=== PATIENT | male | born 1960 | race Caucasian/White ===

== ENCOUNTER 2017-01-03 13:59 | Observation (INO) | payer BC ==
--- NOTE | 2017-01-03 14:08 | CPEKG ---
Heart Rate: 75 RR Interval: 800 P-R Interval: 164 QRSD Interval: 98 QT Interval: 384 QTC Interval: 429 P [place]: 54 QRS [place]: 51 T Wave [place]: 55 EKG Severity - NORMAL ECG - EKG Impression: SINUS RHYTHM Electronically Signed By: Jurgen Mccain 03-Jan-2017 15:23:36
[2017-01-03 14:18] LABS: % IMMATURE GRANULYOCYTES 0.2 % (0.0-1.1); ABSOLUTE IMMATURE GRANULOCYTES 0.01 10^3/uL (0.00-0.10); ADD DIFF? NO; ADD MORPH? NO; ADD SCAN? NO; ATYPICAL LYMPHOCYTE FLAG 0 (0-99); FRAGMENT RBC FLAG 0 (0-99); HEMOGLOBIN 15.6 g/dL (13.7-17.5); LEFT SHIFT FLG 0 (0-99); LIPEMIA HEMOLYSIS FLAG 90 (0-99); MEAN CELL HEMOGLOBIN 32.4 pg (27.9-34.1); MEAN CELL HEMOGLOBIN CONCENTR. 35.5 g/dL (32.4-36.7); MEAN CELL VOLUME 91.3 fL (81.5-99.8); MEAN PLATELET VOLUME 10.7 fL (8.7-11.7); PLATELET CLUMPS FLAG 0 (0-99); PLATELET COUNT 219 10^3/uL (150-400); RED BLOOD CELL COUNT 4.82 10^6/uL (4.40-6.38); RED CELL DISTRIBUTION WIDTH 11.9 % (11.5-15.2)
--- NOTE | 2017-01-03 14:22 | EDPHY ---
H & P Stated Complaint: @ ~1330 felt funny - confused, dizzy, foggy Source: Patient Exam Limitations: No limitations - Personal History Current Tetanus Diphtheria and Acellular Pertussis (TDAP): Yes - Medical/Surgical History Hx Asthma: No Hx Chronic Respiratory Disease: No Hx Diabetes: No Hx Cardiac Disease: Yes Hx Renal Disease: No Hx Cirrhosis: No Hx Alcoholism: No Hx HIV/AIDS: No Hx Splenectomy or Spleen Trauma: No Other PMH: back surg, high cholesterol - Family History Significant Family History: No pertinent family hx - Social History Smoking Status: Never smoked Alcohol Use: Occasionally Drug Use: None <Cristiane Ulola - Last Filed: 01/03/17 15:28> <Jurgen Mccain - Last Filed: 01/03/17 16:30> Time Seen by Provider: 01/03/17 14:03 HPI/ROS: 56-year-old male presents complaining of "Feeling weird, foggy", he also states that while walking around his desk he felt unsteady as if he was leaning to 1 direction without trying to. No slurred speech however he does feel he has difficulty finding certain words. No weakness in his arms or legs, no complaint of numbness in face arms or legs. (Cristiane Ulloa) - Physical Exam Exam: 56-year-old male alert and oriented in mild distress secondary to confusion, nontoxic appearance, afebrile HEENT atraumatic normocephalic, extraocular muscles intact, anicteric Oropharynx negative for erythema negative exudate, tolerating her own secretions Neck supple no meningismus Lungs clear to auscultation bilaterally Heart regular rate and rhythm without murmur rub or gallop Abdomen nondistended normoactive bowel sounds soft nontender Back no CVA tenderness, no step-offs, no spinal tenderness Extremities no cyanosis clubbing or edema Neuro alert and oriented, cranial nerves intact, speech coherent/intact, short- term memory intact,no focal deficits [id number] normal, some difficulty with rapid alternating movement negative pronator drift (Cristiane Ulloa) Constitutional: Initial Vital Signs Temperature (C) 36.6 C 01/03/17 14:04 Heart Rate 67 01/03/17 14:04 Respiratory Rate 18 01/03/17 14:04 Blood Pressure 160/100 H 01/03/17 14:04 O2 Sat (%) 95 01/03/17 14:04 O2 Delivery Mode Room Air Allergies/Adverse Reactions: No Known Allergies Allergy (Unverified 01/03/17 16:22) Home Medications: Medication Instructions Recorded Sertraline HCl 04/20/16 Zocor 04/20/16 Medical Decision Making <Cristiane Ulloa - Last Filed: 01/03/17 15:28> Consult/Admit Bed Type: [place] [address] <Jurgen Mccain - Last Filed: 01/03/17 16:30> - Diagnostics EKG Interpretation: 12-lead EKG interpreted by me; official reading is in trace master. My interpretation is sinus rhythm, normal intervals. (Jurgen Mccain) Imaging Results: Imaging Impressions Head CT 01/03/17 14:23 Impression: Head CT within normal limits. Results called to Dr. Ulloa at 2:48 am. General information for patients regarding this examination can be found at [email or web address]. If you have questions or comments about this report, please contact me at [phone] (hospital) or [phone] (cell). Head CTA 01/03/17 14:59 Impression: Minimal calcified plaque right carotid bulb. Otherwise, normal CT angiogram of the neck. Normal CT angiogram of the [place], as detailed above. Note: All calculations were performed using NASCET criteria. Findings discussed with Jurgen Mccain M.D. At 16:12 hour, 01/03/2017. Neck CTA 01/03/17 14:59 Impression: Minimal calcified plaque right carotid bulb. Otherwise, normal CT angiogram of the neck. Normal CT angiogram of the [place], as detailed above. Note: All calculations were performed using NASCET criteria. Findings discussed with Jurgen Mccain M.D. At 16:12 hour, 01/03/2017. ED Course/Re-evaluation: patient seen and evaluation begun for confusion and unsteady gait. That began at 1:30 p.m. while at work. Differential diagnosis considered acute CVA, cerebellar bleed, vertigo, hypertensive urgency, electrolyte imbalance, dehydration, toxic ingestion labs CBC within normal limits Sed rate, D-dimer, PT PTT all within normal limits CMP within normal limits CT brain negative impression rule out CVA the plan Care turned over to Dr Mccain at 1500 . (Cristiane Ulloa) Other Provider: Care of the patient is assumed from Dr. Ulloa at 1450, with CT head pending and disposition to be determined. At this time noncontrast head CT reported by Dr. Mane is normal. I examined the patient personally at this time. He is here with a employee who has known him for 3 years, says his speech is still not normal. Patient states he started getting symptomatic at 1:30 p.m. today. He noticed difficulty saying words even though he could think of the correct ones. His co-worker who is here with him says he was on his way home but he was having difficulty walking and felt off balance and so presents to the emergency department. He says he still has a little bit of hesitancy with speech currently although he says he is getting better. 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 Discussed with Joseph 1502; patient made stroke alert by myself at this time. Seen via telemedicine by Dr. Linton from [facility] at 1516, recommends no Activase, admit for stroke workup. CT angiography ordered, admit for stroke evaluation to hospitalist service at [facility]. Reason for transfer for inpatient hospital bed not available here discussed with patient and consented. Requires ALS for cardiac monitoring. Dr. Ruiz from Neurology will consult, discussed via phone. 1600: Patient's symptoms completely resolved. On examination is speech does appear normal to me now. He feels like he is back to normal. 1615: Some carotid plaque but no critical stenosis per Dr. Mondragon on angiography. (Jurgen Mccain) - Data Points Laboratory Results: Laboratory Results 01/03/17 14:05 01/03/17 14:05 01/03/17 01/03/17 01/03/17 14:09 14:05 14:05 WBC RBC Hgb POC Hgb 16.0 gm/dL gm/dL (13.7-17.5) Hct 43.7 % % (40.0-51.0) POC Hct 47 % % (40-51) MCV MCH MCHC RDW Plt Count MPV Neut % (Auto) Lymph % (Auto) Polk % (Auto) Eos % (Auto) Baso % (Auto) Nucleat RBC Rel Count Absolute Neuts (auto) Absolute Lymphs (auto) Absolute Monos (auto) Absolute Eos (auto) Absolute Basos (auto) Absolute Nucleated RBC Immature Gran % Immature Gran # ESR 6 MM/HR MM/HR (0-20) PT INR APTT D-Dimer < 0.27 ug/mLFEU ug/mLFEU (0.00-0.50) POC Sodium 141 mEq/L mEq/L (134-144) Sodium POC Potassium 4.0 mEq/L mEq/L (3.3-5.0) Potassium POC Chloride 102 mEq/L mEq/L (97-110) Chloride Carbon Dioxide Anion Gap POC BUN 11 mg/dL mg/dL (7-23) BUN Creatinine POC Creatinine 1.0 mg/dL mg/dL (0.7-1.3) Estimated GFR Glucose POC Glucose 90 mg/dL mg/dL (70-100) Calcium Total Bilirubin AST ALT Alkaline Phosphatase Total Protein Albumin 01/03/17 01/03/17 01/03/17 14:05 14:05 14:05 WBC 6.33 10^3/uL 10^3/uL (3.80-9.50) RBC 4.82 10^6/uL 10^6/uL (4.40-6.38) Hgb 15.6 g/dL g/dL (13.7-17.5) POC Hgb Hct 44.0 % % (40.0-51.0) POC Hct MCV 91.3 fL fL (81.5-99.8) MCH 32.4 pg pg (27.9-34.1) MCHC 35.5 g/dL g/dL (32.4-36.7) RDW 11.9 % % (11.5-15.2) Plt Count 219 10^3/uL 10^3/uL (150-400) MPV 10.7 fL fL (8.7-11.7) Neut % (Auto) 55.8 % % (39.3-74.2) Lymph % (Auto) 32.2 % % (15.0-45.0) Polk % (Auto) 7.7 % % (4.5-13.0) Eos % (Auto) 3.0 % % (0.6-7.6) Baso % (Auto) 1.1 % % (0.3-1.7) Nucleat RBC Rel Count 0.0 % % (0.0-0.2) Absolute Neuts (auto) 3.53 10^3/uL 10^3/uL (1.70-6.50) Absolute Lymphs (auto) 2.04 10^3/uL 10^3/uL (1.00-3.00) Absolute Monos (auto) 0.49 10^3/uL 10^3/uL (0.30-0.80) Absolute Eos (auto) 0.19 10^3/uL 10^3/uL (0.03-0.40) Absolute Basos (auto) 0.07 10^3/uL 10^3/uL (0.02-0.10) Absolute Nucleated RBC 0.00 10^3/uL 10^3/uL (0-0.01) Immature Gran % 0.2 % % (0.0-1.1) Immature Gran # 0.01 10^3/uL 10^3/uL (0.00-0.10) ESR PT 13.6 SEC SEC (12.0-15.0) INR 1.07 (0.83-1.16) APTT 26.5 SEC SEC (23.0-38.0) D-Dimer POC Sodium Sodium 142 mEq/L mEq/L (134-144) POC Potassium Potassium 4.1 mEq/L mEq/L (3.5-5.2) POC Chloride Chloride 102 mEq/L mEq/L (97-110) Carbon Dioxide 26 mEq/l mEq/l (22-31) Anion Gap 14 mEq/L mEq/L (8-16) POC BUN BUN 11 mg/dL mg/dL (7-23) Creatinine 0.9 mg/dL mg/dL (0.7-1.3) POC Creatinine Estimated GFR > 60 Glucose 82 mg/dL mg/dL (70-100) POC Glucose Calcium 9.6 mg/dL mg/dL (8.5-10.4) Total Bilirubin 0.5 mg/dL mg/dL (0.1-1.4) AST 33 IU/L IU/L (17-59) ALT 50 IU/L IU/L (21-72) Alkaline Phosphatase 54 IU/L IU/L (38-126) Total Protein 6.9 g/dL g/dL (6.3-8.2) Albumin 4.4 g/dL g/dL (3.5-5.0) Medications Given: Discontinued Medications Sodium Chloride (Ns) 1,000 mls @ 0 mls/hr IV ONCE ONE PRN Reason: Wide Open Stop: 01/03/17 14:31 Last Admin: 01/03/17 14:38 Dose: 1,000 mls Ondansetron HCl (Zofran) 4 mg IVP EDNOW ONE Stop: 01/03/17 14:31 Last Admin: 01/03/17 14:39 Dose: 4 mg Point of Care Test Results: 01/03/17 14:09 POC Sodium 141 POC Potassium 4.0 POC Chloride 102 POC BUN 11 POC Creatinine 1.0 POC Glucose 90 Departure <Cristiane Ulloa B - Last Filed: 01/03/17 15:28> <Jurgen Mccain - Last Filed: 01/03/17 16:30> - Departure Disposition: [facility] Inpatient Acute Clinical Impression: Expressive aphasia Transient cerebral ischemia Qualifiers: Transient cerebral ischemia type: unspecified Qualified Code(s): G45.9 - Transient cerebral ischemic attack, unspecified Condition: Good
[2017-01-03] MEDS ORDERED: NS 1,000 ML IV ONE (14:30)
[2017-01-03] MEDS ORDERED: ONDANSETRON 4 MG/2 ML VIAL IVP ONE (14:30)
[2017-01-03 14:35] LABS: APTT 26.5 SEC (23.0-38.0); INR 1.07 (0.83-1.16); PROTIME(PATIENT) 13.6 SEC (12.0-15.0)
[2017-01-03 14:39] LABS: ALANINE AMINOTRANSFERASE 50 IU/L (21-72); ALBUMIN 4.4 g/dL (3.5-5.0); ALKALINE PHOSPHATASE 54 IU/L (38-126); ANION GAP 14 mEq/L (8-16); ASPARTATE AMINOTRANSFERASE 33 IU/L (17-59); BILIRUBIN,TOTAL 0.5 mg/dL (0.1-1.4); CALCIUM 9.6 mg/dL (8.5-10.4); CARBON DIOXIDE 26 mEq/l (22-31); CHLORIDE 102 mEq/L (97-110); CREATININE 0.9 mg/dL (0.7-1.3); GLOMERULAR FILTRATION RATE > 60; GLUCOSE 82 mg/dL (70-100); POTASSIUM 4.1 mEq/L (3.5-5.2); SODIUM 142 mEq/L (134-144); TOTAL PROTEIN 6.9 g/dL (6.3-8.2)
[2017-01-03 14:53] LABS: HEMATOCRIT 43.7 % (40.0-51.0)
[2017-01-03] MEDS ORDERED: IOPAMIDOL (ISOVUE 370) 100 ML BTL IV ONE (15:01)
[2017-01-03] MEDS ORDERED: PROMETHAZINE HCL 25 MG/ML INJ IVP PRN (17:40)
[2017-01-03] MEDS ORDERED: ONDANSETRON DISINTEGRATING 4 MG TAB PO PRN (17:40)
[2017-01-03] MEDS ORDERED: oxyCODONE IR 5 MG TAB PO PRN (17:40)
[2017-01-03] MEDS ORDERED: ONDANSETRON 4 MG/2 ML VIAL IVP PRN (17:40)
[2017-01-03] MEDS ORDERED: ACETAMINOPHEN 325 MG TAB PO PRN (17:40)
[2017-01-03] MEDS ORDERED: ZOLPIDEM TARTRATE 5 MG TAB PO PRN (17:40)
[2017-01-03] MEDS ORDERED: LORazepam 0.5 MG TAB PO PRN (17:40)
[2017-01-03 19:53] LABS: COLOR PALE YELLOW; LEUKOCYTE ESTERASE,URINE NEGATIVE (NEGATIVE); NITRITE,URINE NEGATIVE (NEGATIVE)
[2017-01-03] MEDS ORDERED: ATORVASTATIN CALCIUM 20 MG TAB PO SCH (21:00)
[2017-01-03] MEDS ORDERED: SERTRALINE HCL 100 MG TAB PO SCH (21:00)
[2017-01-04 04:51] LABS: % IMMATURE GRANULYOCYTES 0.1 % (0.0-1.1); ABSOLUTE IMMATURE GRANULOCYTES 0.01 10^3/uL (0.00-0.10); ADD DIFF? NO; ADD MORPH? NO; ADD SCAN? NO; ATYPICAL LYMPHOCYTE FLAG 0 (0-99); FRAGMENT RBC FLAG 0 (0-99); HEMATOCRIT 41.9 % (40.0-51.0); HEMOGLOBIN 14.5 g/dL (13.7-17.5); LEFT SHIFT FLG 0 (0-99); LIPEMIA HEMOLYSIS FLAG 90 (0-99); MEAN CELL HEMOGLOBIN 32.6 pg (27.9-34.1); MEAN CELL HEMOGLOBIN CONCENTR. 34.6 g/dL (32.4-36.7); MEAN CELL VOLUME 94.2 fL (81.5-99.8); PLATELET CLUMPS FLAG 0 (0-99); PLATELET COUNT 179 10^3/uL (150-400); RED BLOOD CELL COUNT 4.45 10^6/uL (4.40-6.38); RED CELL DISTRIBUTION WIDTH 12.1 % (11.5-15.2)
[2017-01-04 05:07] LABS: ANION GAP 13 mEq/L (8-16); CALCIUM 9.3 mg/dL (8.5-10.4); CARBON DIOXIDE 21 mEq/l (22-31); CHLORIDE 110 mEq/L (97-110); CHOLESTEROL 177 mg/dL (140-220); CHOLESTEROL/HDL RATIO 3.61 RATIO (1.00-4.97); CREATININE 0.8 mg/dL (0.7-1.3); GLOMERULAR FILTRATION RATE > 60; GLUCOSE 83 mg/dL (70-100); HIGH DENSITY LIPOPROTEIN 49 mg/dL (40-65); LDL/HDL RATIO 1.98 RATIO (1.00-3.64); LOW DENSITY LIPOPROTEIN 97 mg/dL (80-100); NON-HIGH DENSITY LIPOPROTEIN 128 mg/dL (90-129); SODIUM 144 mEq/L (134-144); TRIGLYCERIDE 158 mg/dL (40-150); VERY LOW DENSITY LIPOPROTEINS 31 mg/dL (8-25)
--- NOTE | 2017-01-04 06:51 | GHP ---
[f rep st] HISTORY AND PHYSICAL DATE OF ADMISSION: 01/03/2017 CHIEF COMPLAINT: Word-finding difficulties. HISTORY: This is a 56-year-old man with past medical history of hyperlipidemia who presents with ap proximately 2 hours of word-finding difficulty associated with ataxia, nausea, and gait instability. Patient notes it began approximately 1:30 this afternoon while he was at work. He noted that he k new what he wanted to say but was having difficulty getting the words out. He also noted that when he was walking he felt unsteady and as if he were leaning to the side without intending to. He felt foggy and otherwise just not himself. He did have some associated nausea. The symptoms lasted abo ut 2 hours and then resolved completely. At the time my evaluation, patient feels completely within normal limits. His speech is normal. He notes his thought process is back to normal, as well. He has been up and walked to the bathroom without any difficulty. He has never had similar symptoms i n the past. Prior to onset of these symptoms today, he felt completely well. PAST MEDICAL HISTORY: Includes hyperlipidemia. PAST SURGICAL HISTORY: He has had a back surgery. FAMILY HISTORY: He denies any family history of stroke or heart disease. SOCIAL HISTORY: Patient is . 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 He is a never smoker. He drinks alc ohol about 2 beers several times per week. He denies illicit drugs. He denies significant stress i n his life. REVIEW OF SYSTEMS: 10-point review of systems obtained and negative except as per HPI. MEDICATIONS: Include: 1. Atorvastatin. 2. Sertraline. ALLERGIES: No known drug allergies. PHYSICAL EXAMINATION: VITAL SIGNS: BP 133/92, heart rate 66, respiratory rate 16, O2 sat 96% on ro om air, temperature is 36.9. GENERAL APPEARANCE: This is a well-developed/well-nourished man. He is awake and alert. He is in no acute distress. EYES: Anicteric. HENT: Oropharynx clear. CARDI OVASCULAR: Regular rate and rhythm. No murmurs, rubs, or gallops. PULMONARY: CTA bilaterally. N ormal work of breathing. ABDOMEN: Soft, nontender. Positive bowel sounds. EXTREMITIES: No clubb ing, cyanosis, or edema. SKIN: Warm, dry, well perfused. NEURO/PSYCH: Patient is oriented and appropriate. His gait is normal. Strength and sensation are intact. CLINICAL DATA: Labs reviewed. CBC is completely within normal limits. Coags are completely within normal limits. D-dimer is negative. Chemistry is completely unremarkable including liver function testing. EKG personally reviewed and interpreted shows sinus rhythm, rate of 75, no ischemic changes. Head CT personally reviewed and interpreted as within normal limits. Head and neck CT angiogram katina ws minimally calcified right carotid bulb, otherwise normal CTA of the neck and of the [place] of [place]. ASSESSMENT/PLAN: This is a 56-year-old man with past medical history of hyperlipidemia presenting w ith word-finding difficulty and ataxia consistent with transient ischemic attack. 1. Transient ischemic attack seems to be most likely underlying diagnosis. His initial workup is c ompletely negative. Will check a lipid panel and hemoglobin A1c. Will obtain an echocardiogram wit h bubble. Will consult Neurology. Will defer whether or not to get a followup MRI to Neurology. A t this time, symptoms are completely resolved. 2. Nausea. This too has resolved. Was associated with above. Some of what he describes sounds a bit consistent with vertigo, but again symptoms resolved completely. I suppose BPPV could be in the differential, as well, given that he described a positional component to the vertigo-like symptoms with associated nausea. Word-finding difficulties would be a little bit unusual for BPPV, however. 3. Hyperlipidemia. Will continue his statin and check a lipid panel. 4. Disposition. Observation status. Suspect he will need less than 48 hours stay for evaluation a nd management of above. 5. Patient is new to my care. Old records reviewed and summarized as per HPI and past medical hist ory. Care plan reviewed with ER physician, including plans for overnight observation. /[id number]/MODL
--- NOTE | 2017-01-04 06:56 | GCON ---
[f rep st] CONSULTATION CHIEF COMPLAINT: Expressive aphasia symptoms. HISTORY OF PRESENT ILLNESS: Mr. 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 His only previous medical history is dyslipidemia and depression. He is on atorvastatin and Zoloft for many years for this. He has had no previous neurologic history. No family history of neurologic problems including stroke. He was at work today at 1:30 p.m. when suddenly he felt he could not speak the words he was thinking in his mind. There was no discoordination in his actual motor or speech to suggest dysarthria. He describes more of a purely expressive aphasia in terms of being unable to get the words he was thinking out. He had no receptive language problems. He was able to clearly understand everyone around him at that time. There were no focal, motor, sensory changes. No vision changes. No other bulbar symptoms. No facial droop or numbness etc. Based on the symptoms he went to the [facility] Emergency Department and had a stroke alert activated. He was deemed not to be a thrombolysis candidate and recommended for admission for further evaluation. He had a head CT without contrast, which was normal. He had CT angiography of the head and neck. He has some mild plaquing at the right carotid bulb, otherwise a negative angiography for acute changes in the head and neck. He feels like the symptoms are improving. This occurred while not on any daily anti-platelet therapy. REVIEW OF SYSTEMS: A 10-point review of systems was done only pertinent to the HPI. PAST MEDICAL HISTORY: Dyslipidemia and depression. MEDICATIONS: Statin and SSRI daily. ALLERGIES: No known drug allergies. 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 He does not smoke. PHYSICAL EXAMINATION: VITAL SIGNS: Blood pressure 133/92, temperature 36.8, respirations 16, O2 sats 96%. GENERAL: In no acute distress. Very pleasant gentleman, nontoxic appearing. HIGHER MENTAL FUNCTION: He is awake and alert. He named 5/5, repeats 5/5, and follows commands 5/5. There were no objective findings with formal language testing. There was some hesitancy and minimal telegraphic features to his speech that was not entirely specific. Comprehension: As noted above was entirely normal. Cranial nerves: 2 through 7, 11, 12 were normal. Motor: Strength, tone, and deep tendon reflexes were normal throughout. Sensory: Normal to light touch in all 4 extremities. Coordination: Normal in the upper and lower extremities bilaterally. IMPRESSION AND PLAN: 1. Expressive aphasia symptoms, improving. The patient certainly may have had a small left inferior frontal infarct causing pure expressive aphasia. However, on objective testing he has no clear- cut language deficits outside of some hesitancy and telegraphic features to his speech. In terms of vascular risk factors, he has dyslipidemia. We need to evaluate further with an MRI brain without contrast, ECG telemetry to screen for atrial fibrillation, and echocardiography to see if there is any cardiac source of thrombus. I recommend he start on aspirin daily which he has been given and continue indefinitely at this point. We will continue statin therapy as well. Certainly speech therapy can help along with this patient. I will follow up on all of the above and make further recommendations accordingly. Thank you for this consultation. /[id number]/MODL MTDD
[2017-01-04 07:39] VITALS: RESP 12; TEMP 97.9
[2017-01-04] MEDS ORDERED: ASPIRIN 81 MG CHEWABLE TAB PO SCH (09:00)
--- NOTE | 2017-01-04 09:37 | NEUROPROG ---
Assessment: 1. Aphasia symptoms with mild headache afterwards, resolved The patient's brain MRI shows no acute infarct. It is essentially normal for age. I obtained more history today that after his expressive aphasia symptoms he developed a mild throbbing headache. He has no personal or family history of migraine that he knows of. The differential diagnosis at this point includes transient ischemic attack versus migraine with aura. He may have a family history that he is not aware of regarding migraine and had his 1st migraine related to dehydration and age. Not clear. We will complete the TIA workup with echocardiography. If there is no obvious cardiac source on echo, I think he can be discharged today on: 1. aspirin 325 mg daily coated with meals. 2. He should continue statin therapy. 3. Outpatient 30 day event monitor to further screen for paroxysmal atrial fibrillation 4. Follow-up with primary care physician 5. Follow up with Neurology in 6 weeks 6. Increase p.o. hydration If there is any significant abnormality on echocardiography, please contact neurology service. Otherwise, we will plan on seeing him as an outpatient. Do not hesitate to call if you have any questions or if he has any changes in neurologic status. Subjective: No new symptoms, symptoms resolved Objective: Vital Signs Temp Pulse Resp BP Pulse Ox 36.6 C 62 12 134/82 H 94 01/04/17 07:36 01/04/17 07:36 01/04/17 07:36 01/04/17 07:36 01/04/17 07:36 Laboratory Results 01/04/17 04:35 01/04/17 04:35 01/03/17 01/04/17 01/05/17 05:59 05:59 05:59 Intake Total 1750 Output Total 1200 Balance 550 PT 13.6 SEC (12.0-15.0) 01/03/17 14:05 INR 1.07 (0.83-1.16) 01/03/17 14:05 Awake and alert No aphasia No focal weakness Allergies/Adverse Reactions: No Known Allergies Allergy (Verified 01/03/17 17:53)
[2017-01-04 11:44] VITALS: BP 119/77; PULSE 71; O2SAT 96
[2017-01-04 12:11] LABS: HEMOGLOBIN A1C 4.8 % (4.0-6.0)
--- NOTE | 2017-01-04 13:22 | ECHO ---
[id number] + + [address] : : [place] [address] : : [phone] + + Adult Echocardiographic Report + + :Name: EVELINA PACHECO SStudy Date: 01/04/2017 10:42 AM : : Hospital Admission Number: [id number] Loc ation: 346: :: 1960 Gender: Male Height: 72 in : :Age: 56 yrs Race: WH Weight: 175 lb : :Reason For Study: Eval LV Fx : : BSA: 2.0 me ters2 : :History: TIA, Expressive Aphasia : + + MMode/2D Measurements \T\ Calculations IVSd: 0.98 cm LVIDd: 5.1 cm FS: 39.1 % Ao root diam: 3.7 cm LVPWd: 1.1 cm LVIDs: 3.1 cm EDV(Teich): 123.4 ml ACS: 2.1 cm ESV(Teich): 38.0 ml EF(Teich): 69.2 % Normal Measurement Values: + + :LVIDd (3.5-5.7cm) IVSd (0.6-1.1cm) LVPWd (0.6-1.1cm) Aortic Root (2.0-3.7cm)Left Atrium (1.5-4.0cm): :LV Vol(d) (76-115ml) LV Vol(s) (29-48ml) Ejec Fraction (50-65%)PV Evelio (0.6- 1.2m/s) TV Evelio (0.4-1.0m/s) : :MV E Evelio (0.8-1.0m/s)MV A Evelio (0.3-1.0m/s)LVOT Evelio (0.7-1.2m/s) Asc Ao Evelio ( 0.9-1.8m/s) : + + Doppler Measurements \T\ Calculations MV E max evelio: Ao V2 max: LV V1 max: PA V2 max: 78.0 cm/sec 139.8 cm/sec 73.1 cm/sec 88.2 cm/sec MV A max evelio: Ao max P.8 mmHg LV V1 max PG: PA max P.5 cm/sec 2.1 mmHg 3.1 mmHg MV E/A: 0.97 Left Ventricle The left ventricle is normal in size and function. There is normal left ventricular wall thickness. The left ventricular ejection fraction is normal. There is Doppler evidence for diastolic dysfunction. Ejection Fraction = 70%. The left ventricular wall motion is normal. Right Ventricle The right ventricle is normal in size and function. Atria The left atrial size is normal. Right atrial size is normal. Injection of contrast documented no interatrial shunt. The interatrial septum is intact with no evidence for an atrial septal defect. Mitral Valve The mitral valve is normal in structure and function. There is no evidence of mitral valve prolapse. There is no mitral valve stenosis. There is no mitral regurgitation noted. Tricuspid Valve The tricuspid valve is normal in structure and function. There is trace tricuspid regurgitation. Right ventricular systolic pressure is normal. Aortic Valve The aortic valve is normal in structure and function. There is no aortic stenosis. There is no aortic insufficiency. Pulmonic Valve The pulmonic valve is normal in structure and function. There is no pulmonic valvular regurgitation. Great Vessels The aortic root is normal size. Pericardium/Pleural There is no pericardial effusion. Conclusion A complete two-dimensional transthoracic echocardiogram was performed (2D, M-mode, Doppler and color flow Doppler). The left ventricle is normal in size and function. There is Doppler evidence for diastolic dysfunction. Ejection Fraction = 70%. The left ventricular wall motion is normal. The right ventricle is normal in size and function. The left atrial size is normal. Injection of contrast documented no interatrial shunt. The mitral valve is normal in structure and function. The tricuspid valve is normal in structure and function. There is trace tricuspid regurgitation. Right ventricular systolic pressure is normal. The aortic valve is normal in structure and function. The aortic root is normal size. There is no pericardial effusion. No prior echo Final Reading Physician: Dr Millie Reyes electronically signed on 01/04/2017 01:21 PM Ordering Physician: Jenny Patino Performed By: Walter Solis, RDCS
--- NOTE | 2017-01-05 02:48 | GDS ---
[f rep st] DISCHARGE SUMMARY DISCHARGE DIAGNOSES: 1. Aphasia. 2. Likely transient ischemic attack versus migraine. STUDIES AND PROCEDURES DONE: 1. CT of the head. 2. CT angio of the head and neck. 3. MRI of the brain. 4. Echocardiogram. CONSULTATIONS: Dr. Ruiz of Neurology. PHYSICAL EXAMINATION: GENERAL: The patient is alert. VITAL SIGNS: Afebrile at 36.6, pulse is 71, respiratory rate 12, blood pressure is 119/77, saturating 96% on room air. I have seen and evaluated the patient on the day of discharge. HOSPITAL COURSE: The patient is a 56-year-old male who presented to the emergency room with complai nts of word-finding difficulties. He was evaluated and diagnosed with trans-ischemic attack versus migraine. During this hospitalization, he received a thorough evaluation. Neurology consult was ob tained. The patient had a CT angio of his head and neck as well as an MRI of his brain and CT of hi s head. Echocardiogram was within normal limits. Patient's laboratory evaluation is benign with a noted triglyceride level of 158. He has no other laboratory abnormalities. The patient was experie ncing word-finding difficulties as well as throbbing head. This condition has completely resolved. He has returned to his baseline. He no longer suffers from any nausea or other complications. He will be discharged home independently to follow up in the outpatient setting. Thorough discharge in structions have been provided to him at the time of disposition. He will continue a 325 mg aspirin daily as well as his statin therapy. It is recommended he follow up in the outpatient setting with a 30-day water superintendent to assure he is not suffering from any paroxysmal atrial fibrillation, as w ell as a neurology consult in 6 weeks. DISCHARGE MEDICATIONS: I have not provided any prescriptions at the time of disposition. I have no t adjusted the patient's previously prescribed home medications except for the addition of aspirin 3 25 mg daily. /[id number]/MODL
== END 2017-01-04 15:16 | disposition home or self-care (01) ==
LOC: CED 13:59 → CEDHOLD 15:33 → UNDOADMOB 15:40 → F3N 16:50
PROVIDERS: ADMIT Internal Medicine; ATTEND Internal Medicine
DX: R47.01 Aphasia (principal); E78.1 Pure hyperglyceridemia
CPT/HCPCS: 70450; 70496; 70498; 70551; 92523; 93005; 93306; 96361; 96374; 97161; 97165; 99285; G0378; 80053-PO; 80305; 82947-QW; 85025-PO; 85378-PO; 85610-PO; 85652-PO; 85730-PO; J2405; Q9967